=== PATIENT | male | born 1980 | race Caucasian/White ===

== ENCOUNTER 2017-09-20 13:08 | Inpatient (IN) | payer MEDICAID, OTHER ==
[~2017-09-20] VITALS: Ht 195.6 cm; Wt 114.0 kg
[2017-09-20] MEDS ORDERED: MORPHINE SULFATE 4 MG/ML, 1ML IVPush PRN ×2 (13:30→15:00)
[2017-09-20] MEDS ORDERED: SODIUM CHLORIDE 0.9% 1,000ML IVBOLUS ONE (13:30)
[2017-09-20] MEDS ORDERED: ONDANSETRON 2MG/ML, 2ML IVPush ONE (13:30)
[2017-09-20] MEDS ORDERED: ONDANSETRON 2MG/ML, 2ML ONE (14:21)
[2017-09-20] MEDS ORDERED: MORPHINE SULFATE 4 MG/ML, 1ML ONE ×2 (14:22→15:43)
[2017-09-20 14:30] LABS: ALANINE AMINOTRANSFERASE 67 U/L (12-78); ALBUMIN 2.4 g/dL (3.4-5.0); ANION GAP 7 mmol/L (5-15); CALCIUM 8.6 mg/dL (8.5-10.1); CHLORIDE 101 mmol/L (98-107); CREATININE 0.76 mg/dL (0.7-1.3)
[2017-09-20 14:32] LABS: ALKALINE PHOSPHATASE 161 U/L (45-117); BILIRUBIN,TOTAL 9.5 mg/dL (0.2-1.0); MEAN CORPUSCULAR HEMOGLOBIN 38.2 pg (27.5-34.5); MEAN CORPUSCULAR HGB CONC 33.8 g/dL (33.2-36.2); MEAN CORPUSCULAR VOLUME 112.8 fL (81-97); MEAN PLATELET VOLUME 9.3 fL (7.4-10.4); PLATELET COUNT 336 x10^3/uL (130-400); RED BLOOD COUNT 3.39 x10^6/uL (4.38-5.82); RED CELL DISTRIBUTION WIDTH 18.8 % (9.4-14.8); TOTAL PROTEIN 8.1 g/dL (6.4-8.2)
[2017-09-20 14:53] LABS: MD YES
[2017-09-20 15:11] LABS: BAND#(MANUAL) 0.27 x10^3/uL; BANDS%(MANUAL) 2 % (0-7); BASOS#(MANUAL) 0.13 x10^3/uL (0-0.1); BASOS% (MANUAL) 1 % (0-1); LYMPH#(MANUAL) 1.86 x10^3/uL (1-3.4); LYMPHS% (MANUAL) 14 % (22-44); MONOS% (MANUAL) 9 % (2-9); REACTIVE LYMPHS # (MANUAL) 0.13 x10^3/uL (0-0); REACTIVE LYMPHS % (MANUAL) 1 % (0-0); SEG#(MANUAL) 9.71 x10^3/uL (1.8-6.8); SEGS% (MANUAL) 73 % (42-75)
[2017-09-20 15:12] LABS: ANISOCYTOSIS 2+; POLYCHROMASIA 1+
[2017-09-20 15:14] LABS: <PLATELET ESTIMATE> ADEQUATE; LARGE PLATELETS 1+; TARGET CELLS 1+
[2017-09-20] MEDS ORDERED: CEFTRIAXONE PMX 1GM/50ML 50 ML IV ONE (15:30)
[2017-09-20] MEDS ORDERED: CEFTRIAXONE PMX 1GM/50ML 50 ML ONE (15:43)
[2017-09-20] MEDS ORDERED: METRONIDAZOLE PMX 500MG/100ML 0 ML ONE (15:43)
[2017-09-20] MEDS ORDERED: SODIUM CHLORIDE 0.9% 1,000 ML IV ONE (16:00)
[2017-09-20] MEDS ORDERED: METRONIDAZOLE PMX 500MG/100ML 100 ML IV ONE (16:00)
[2017-09-20] MEDS ORDERED: POTASSIUM CHLORIDE 20 MEQ, MAGNESIUM SULFATE 2 GM, THIAMINE 100 MG, MVI ADULT 10 ML, FO... IV SCH (16:39)
[2017-09-20 16:56] LABS: MICROSCOPIC INDICATED
[2017-09-20] MEDS ORDERED: hydrALAzine 20 MG/ML, 1ML IVPush PRN (17:00)
[2017-09-20] MEDS ORDERED: DOCUSATE 100 MG CAPSULE PO PRN (17:00)
[2017-09-20] MEDS: ENOXAPARIN 40 MG/0.4 ML SQ SCH (17:00)
[2017-09-20] MEDS ORDERED: GUAIFENESIN/DM 200-20MG, 10ML UDC PO PRN (17:00)
[2017-09-20] MEDS ORDERED: PANTOPRAZOLE 40 MG IV IVPush SCH (17:00)
[2017-09-20 17:03] LABS: CULTURE INDICATED? YES
[2017-09-20 17:30] LABS: FOLATE LEVEL 2.6 ng/mL (3.1-17.5); THYROID STIMULATING HORMONE 3.97 mIU/L (0.358-3.740)
[2017-09-20 17:38] VITALS: BP 136/89
[2017-09-20] MEDS: morphine SULFATE 10 MG/ML, 1ML IVPush PRN ×2 (18:10→21:05)
[2017-09-20] MEDS: LACTATED RINGERS 1,000 ML IV SCH (18:11)
[2017-09-20] MEDS: NICOTINE 21 MG/24 HR PATCH.TD24 TD SCH (18:11)
[2017-09-20 20:24] VITALS: BP 123/74
[2017-09-20] MEDS: PANTOPRAZOLE 40 MG IV IVPush SCH (21:00)
[2017-09-20] MEDS: POTASSIUM CHLORIDE 20 MEQ, MAGNESIUM SULFATE 2 GM, THIAMINE 100 MG, MVI ADULT 10 ML, FO... IV SCH ×2 (21:00→21:50)
[2017-09-21] MEDS: morphine SULFATE 10 MG/ML, 1ML IVPush PRN ×7 (00:03→23:22)
[2017-09-21 03:11] VITALS: BP 112/72
[2017-09-21] MEDS: ONDANSETRON 2MG/ML, 2ML IVPush PRN ×2 (04:22→14:08)
[2017-09-21 04:56] LABS: ALANINE AMINOTRANSFERASE 51 U/L (12-78); ALBUMIN 1.9 g/dL (3.4-5.0); ANION GAP 5 mmol/L (5-15); CALCIUM 7.8 mg/dL (8.5-10.1); CHLORIDE 106 mmol/L (98-107); CREATININE 0.58 mg/dL (0.7-1.3)
[2017-09-21 04:59] LABS: ALKALINE PHOSPHATASE 126 U/L (45-117); BILIRUBIN,TOTAL 7.3 mg/dL (0.2-1.0); CHOL/HDL RATIO 16.6; CHOLESTEROL, TOTAL 133 mg/dL (140-239); HDL CHOL % 6 % (26-37); HDL CHOLESTEROL (DIRECT) 8 mg/dL (40-60); TOTAL PROTEIN 6.5 g/dL (6.4-8.2)
[2017-09-21 05:10] LABS: LDL CHOLESTEROL,CALCULATED 75 mg/dL (54-169); LDL/HDL RATIO 9.4 (0.5-3.0); TRIGLYCERIDES 249 mg/dL (50-200); VLDL CHOLESTEROL 50 mg/dL (0-25)
[2017-09-21 05:15] LABS: MEAN CORPUSCULAR HEMOGLOBIN 38.5 pg (27.5-34.5); MEAN CORPUSCULAR HGB CONC 34.1 g/dL (33.2-36.2); MEAN CORPUSCULAR VOLUME 112.9 fL (81-97); PLATELET COUNT 301 x10^3/uL (130-400); RED BLOOD COUNT 2.75 x10^6/uL (4.38-5.82); RED CELL DISTRIBUTION WIDTH 19.1 % (9.4-14.8)
[2017-09-21 05:16] LABS: MD YES
[2017-09-21 05:18] LABS: BAND#(MANUAL) 0.42 x10^3/uL; BANDS%(MANUAL) 4 % (0-7); EOS% (MANUAL) 1 % (1-7); LYMPH#(MANUAL) 1.14 x10^3/uL (1-3.4); LYMPHS% (MANUAL) 11 % (22-44); MONOS#(MANUAL) 1.04 x10^3/uL (0.3-2.7); MONOS% (MANUAL) 10 % (2-9); POLYCHROMASIA 1+; SEGS% (MANUAL) 74 % (42-75)
[2017-09-21 05:19] LABS: <PLATELET ESTIMATE> ADEQUATE; LARGE PLATELETS 1+; TARGET CELLS 1+
[2017-09-21 05:20] LABS: ANISOCYTOSIS 2+
[2017-09-21 06:34] VITALS: BP 96/61
[2017-09-21] MEDS: LACTATED RINGERS 1,000 ML IV SCH ×2 (07:33→16:43)
[2017-09-21] MEDS: PANTOPRAZOLE 40 MG IV IVPush SCH ×2 (09:08→20:20)
[2017-09-21] MEDS ORDERED: SINCALIDE (KINEVAC) 5 MCG ONE ×3 (10:46→13:17)
[2017-09-21] MEDS ORDERED: POTASSIUM PHOSPHATE 22 MEQ in SODIUM CHLORIDE 0.9% 500 ML IV ONE (12:00)
[2017-09-21] MEDS: ENOXAPARIN 40 MG/0.4 ML SQ SCH (16:07)
[2017-09-21] MEDS: NICOTINE 21 MG/24 HR PATCH.TD24 TD SCH (16:07)
[2017-09-21 18:53] VITALS: BP 127/81
[2017-09-21] MEDS: POTASSIUM CHLORIDE 20 MEQ, MAGNESIUM SULFATE 2 GM, THIAMINE 100 MG, MVI ADULT 10 ML, FO... IV SCH (22:21)
[2017-09-22 04:01] VITALS: BP 135/76
[2017-09-22] MEDS: morphine SULFATE 10 MG/ML, 1ML IVPush PRN ×3 (04:11→10:45)
[2017-09-22 04:28] LABS: MEAN CORPUSCULAR HEMOGLOBIN 38.2 pg (27.5-34.5); MEAN CORPUSCULAR HGB CONC 33.5 g/dL (33.2-36.2); MEAN CORPUSCULAR VOLUME 114.1 fL (81-97); MEAN PLATELET VOLUME 9.1 fL (7.4-10.4); PLATELET COUNT 322 x10^3/uL (130-400); RED BLOOD COUNT 2.88 x10^6/uL (4.38-5.82); RED CELL DISTRIBUTION WIDTH 19.4 % (9.4-14.8)
[2017-09-22 04:33] LABS: ALANINE AMINOTRANSFERASE 54 U/L (12-78); ANION GAP 5 mmol/L (5-15); CHLORIDE 108 mmol/L (98-107)
[2017-09-22 04:35] LABS: ALKALINE PHOSPHATASE 130 U/L (45-117); BILIRUBIN,TOTAL 8.6 mg/dL (0.2-1.0); TOTAL PROTEIN 6.8 g/dL (6.4-8.2)
[2017-09-22 05:58] LABS: MD YES
[2017-09-22 06:00] LABS: BAND#(MANUAL) 0.32 x10^3/uL; BANDS%(MANUAL) 3 % (0-7); BASOS#(MANUAL) 0.11 x10^3/uL (0-0.1); BASOS% (MANUAL) 1 % (0-1); EOS#(MANUAL) 0.21 x10^3/uL (0.0-0.4); EOS% (MANUAL) 2 % (1-7); LYMPH#(MANUAL) 2.21 x10^3/uL (1-3.4); LYMPHS% (MANUAL) 21 % (22-44); MONOS#(MANUAL) 0.74 x10^3/uL (0.3-2.7); MONOS% (MANUAL) 7 % (2-9); SEG#(MANUAL) 6.93 x10^3/uL (1.8-6.8); SEGS% (MANUAL) 66 % (42-75)
[2017-09-22 06:01] LABS: <PLATELET ESTIMATE> ADEQUATE; ANISOCYTOSIS 2+; LARGE PLATELETS 1+; POLYCHROMASIA 1+; TARGET CELLS 1+
[2017-09-22] MEDS: PANTOPRAZOLE 40 MG IV IVPush SCH ×2 (07:47→19:35)
[2017-09-22 08:10] VITALS: BP 117/69
[2017-09-22] MEDS: LACTATED RINGERS 1,000 ML IV SCH ×2 (09:30→19:30)
[2017-09-22] MEDS ORDERED: SODIUM PHOSPHATE 20 MMOL in SODIUM CHLORIDE 0.9% 500 ML IV ONE (12:30)
[2017-09-22] MEDS: OXYcodone IR 5MG TABLET PO PRN ×3 (13:33→21:36)
[2017-09-22 13:54] VITALS: BP 126/82
[2017-09-22] MEDS: ENOXAPARIN 40 MG/0.4 ML SQ SCH (17:00)
[2017-09-22] MEDS: NICOTINE 21 MG/24 HR PATCH.TD24 TD SCH (17:14)
[2017-09-22 18:12] LABS: AMPHETAMINE SCREEN, URINE Negative (Negative); BARBITURATE SCREEN, URINE Negative (Negative); BENZODIAZEPINE SCREEN, URINE Negative (Negative); CANNABINOID SCREEN, URINE Negative (Negative); COCAINE SCREEN, URINE Positive (Negative); METHADONE SCREEN, URINE Negative (Negative); OPIATE SCREEN, URINE Positive (Negative)
[2017-09-22 18:24] VITALS: BP 120/75
[2017-09-22] MEDS: POTASSIUM CHLORIDE 20 MEQ, MAGNESIUM SULFATE 2 GM, THIAMINE 100 MG, MVI ADULT 10 ML, FO... IV SCH (19:35)
[2017-09-23 01:42] VITALS: BP 117/78
[2017-09-23] MEDS: OXYcodone IR 5MG TABLET PO PRN ×6 (01:47→23:33)
[2017-09-23 05:44] LABS: MEAN CORPUSCULAR HEMOGLOBIN 38.1 pg (27.5-34.5); MEAN CORPUSCULAR HGB CONC 33.6 g/dL (33.2-36.2); MEAN CORPUSCULAR VOLUME 113.2 fL (81-97); MEAN PLATELET VOLUME 9.1 fL (7.4-10.4); PLATELET COUNT 330 x10^3/uL (130-400); RED BLOOD COUNT 2.88 x10^6/uL (4.38-5.82); RED CELL DISTRIBUTION WIDTH 19.3 % (9.4-14.8)
[2017-09-23 05:57] LABS: CHLORIDE 108 mmol/L (98-107)
[2017-09-23 06:05] LABS: ALANINE AMINOTRANSFERASE 57 U/L (12-78); ALKALINE PHOSPHATASE 134 U/L (45-117); ANION GAP 7 mmol/L (5-15); BILIRUBIN,TOTAL 7.4 mg/dL (0.2-1.0); CALCIUM 7.7 mg/dL (8.5-10.1); CREATININE 0.67 mg/dL (0.7-1.3); TOTAL PROTEIN 6.7 g/dL (6.4-8.2)
[2017-09-23 06:21] LABS: MD YES
[2017-09-23 06:35] LABS: EOS% (MANUAL) 2 % (1-7); LYMPH#(MANUAL) 2.22 x10^3/uL (1-3.4); LYMPHS% (MANUAL) 22 % (22-44); MONOS#(MANUAL) 0.81 x10^3/uL (0.3-2.7); MONOS% (MANUAL) 8 % (2-9); SEG#(MANUAL) 6.87 x10^3/uL (1.8-6.8); SEGS% (MANUAL) 68 % (42-75)
[2017-09-23 06:36] LABS: ANISOCYTOSIS 2+
[2017-09-23 06:37] LABS: TARGET CELLS 1+
[2017-09-23 06:38] LABS: <PLATELET ESTIMATE> ADEQUATE; LARGE PLATELETS 1+
[2017-09-23] MEDS: LACTATED RINGERS 1,000 ML IV SCH (06:47)
[2017-09-23 07:50] VITALS: BP 114/72
[2017-09-23] MEDS: PANTOPRAZOLE 40 MG IV IVPush SCH ×2 (09:02→23:33)
[2017-09-23] MEDS ORDERED: maalox/diphenh/lido/sucralfate 5 ML PO PRN (12:00)
[2017-09-23 12:17] LABS: OCCULT BLOOD NEGATIVE (NEGATIVE)
[2017-09-23] MEDS: THIAMINE 100MG TABLET PO SCH ×2 (12:58→23:33)
[2017-09-23] MEDS: MULTIVITAMIN 1 TABLET PO SCH (12:58)
[2017-09-23] MEDS: FOLIC ACID 1 MG TABLET PO SCH (12:58)
[2017-09-23 14:56] VITALS: BP 123/80
[2017-09-23] MEDS: ENOXAPARIN 40 MG/0.4 ML SQ SCH (16:18)
[2017-09-23] MEDS: NICOTINE 21 MG/24 HR PATCH.TD24 TD SCH (17:32)
[2017-09-23 18:36] VITALS: BP 122/73
[2017-09-24 01:19] VITALS: BP 124/86
[2017-09-24] MEDS: OXYcodone IR 5MG TABLET PO PRN ×3 (03:29→13:05)
[2017-09-24 04:40] LABS: MEAN CORPUSCULAR HEMOGLOBIN 37.6 pg (27.5-34.5); MEAN CORPUSCULAR VOLUME 113.9 fL (81-97); MEAN PLATELET VOLUME 9.2 fL (7.4-10.4); PLATELET COUNT 351 x10^3/uL (130-400); RED BLOOD COUNT 3.24 x10^6/uL (4.38-5.82); RED CELL DISTRIBUTION WIDTH 18.9 % (9.4-14.8)
[2017-09-24 04:45] LABS: ALBUMIN 2.3 g/dL (3.4-5.0); ANION GAP 8 mmol/L (5-15); CALCIUM 8.2 mg/dL (8.5-10.1); CHLORIDE 103 mmol/L (98-107)
[2017-09-24 04:50] LABS: ALANINE AMINOTRANSFERASE 66 U/L (12-78); ALKALINE PHOSPHATASE 160 U/L (45-117); BILIRUBIN,TOTAL 8.3 mg/dL (0.2-1.0)
[2017-09-24 05:45] LABS: MD YES
[2017-09-24 05:49] LABS: BAND#(MANUAL) 0.11 x10^3/uL; BANDS%(MANUAL) 1 % (0-7); EOS#(MANUAL) 0.11 x10^3/uL (0.0-0.4); EOS% (MANUAL) 1 % (1-7); LYMPH#(MANUAL) 1.78 x10^3/uL (1-3.4); LYMPHS% (MANUAL) 16 % (22-44); MONOS#(MANUAL) 1.44 x10^3/uL (0.3-2.7); MONOS% (MANUAL) 13 % (2-9); SEG#(MANUAL) 7.66 x10^3/uL (1.8-6.8); SEGS% (MANUAL) 69 % (42-75)
[2017-09-24 05:50] LABS: ANISOCYTOSIS 2+; POLYCHROMASIA 1+; TARGET CELLS 1+
[2017-09-24 05:51] LABS: <PLATELET ESTIMATE> ADEQUATE; LARGE PLATELETS 1+
[2017-09-24 07:00] VITALS: BP 111/69
[2017-09-24] MEDS: MULTIVITAMIN 1 TABLET PO SCH (08:51)
[2017-09-24] MEDS: PANTOPRAZOLE 40 MG IV IVPush SCH (08:51)
[2017-09-24] MEDS: THIAMINE 100MG TABLET PO SCH (08:51)
[2017-09-24] MEDS: FOLIC ACID 1 MG TABLET PO SCH (08:51)
[2017-09-24 13:20] VITALS: BP 113/67
[2017-09-24] MEDS ORDERED: maalox/diphenh/lido/sucralfate PO (13:46)
[2017-09-24] MEDS ORDERED: OMEP-110 PO (13:46)
[2017-09-24] MEDS ORDERED: FOLI-17 PO (13:46)
[2017-09-24] MEDS ORDERED: MULT1TAB60 PO (13:46)
[2017-09-24] MEDS ORDERED: THIA100T6 PO (13:51)
== END 2017-09-24 16:03 | disposition home or self-care (01) | DRG 432 ==
LOC: ED 15:32 → EDIP 16:27 → 3NW 17:16 → DCLOUNGE 09-24 15:55
PROVIDERS: ADMIT Internal Medicine; ATTEND Internal Medicine
DX: K70.40 Alcoholic hepatic failure without coma (principal); K85.20 Alcohol induced acute pancreatitis without necrosis or infection; K70.0 Alcoholic fatty liver; K70.11 Alcoholic hepatitis with ascites; E87.1 Hypo-osmolality and hyponatremia; B19.10 Unspecified viral hepatitis B without hepatic coma; F15.20 Other stimulant dependence, uncomplicated; L02.414 Cutaneous abscess of left upper limb; L03.114 Cellulitis of left upper limb; K70.31 Alcoholic cirrhosis of liver with ascites; D50.9 Iron deficiency anemia, unspecified; F10.10 Alcohol abuse, uncomplicated; D75.89 Other specified diseases of blood and blood-forming organs; K82.8 Other specified diseases of gallbladder; E53.8 Deficiency of other specified B group vitamins; I10 Essential (primary) hypertension; Z87.891 Personal history of nicotine dependence; Z82.49 Family history of ischemic heart disease and other diseases of the circulatory system; Z83.3 Family history of diabetes mellitus
CPT/HCPCS: 36415; 74181; 76700; 78227; 80053; 80061; 80307; 81001; 82140; 82248; 82272; 82533; 82607; 82746; 83690; 83735; 83935; 84100; 84443; 85025; 86704; 86706; 86708; 86803; 87086; 87340; 96361; 96365; 96375; J0696; J2405; J3411; J3475; J3480; J7042; A9537; C9113; C9898; J2270; J2805; J7030; J7040; J7120

== ENCOUNTER 2020-08-17 17:10 | Emergency (ER) | payer MEDICAID, OTHER ==
[~2020-08-17] VITALS: Ht 195.6 cm; Wt 120.0 kg
[~2020-08-17 17:10] MED LIST: FOLI1TAB32 PO; MULT-449 PO; OMEP-110 PO; THIA100T67 PO; maalox/diphenh/lido/sucralfate PO
--- NOTE | 2020-08-17 18:14 | NUR ---
STUDENT SERVICES REPRESENTATIVE: PT TO ROOM FROM BERNA CHAPMAN
--- NOTE | 2020-08-17 18:18 | NUR ---
PATIENT ARRIVES WITH THREE TO FOUR DAYS SOB, BODY ACHES, CHILLS.
--- NOTE | 2020-08-17 19:05 | NUR ---
BEDSIDE REPORT RECEIVED FROM ERICK NOLAND
--- NOTE | 2020-08-17 19:07 | NUR ---
PT SITTING UPRIGHT ON ESTEVAN QUINTERO, VSS. PT DENIES ANY NEEDS AT THIS TIME. CALL LIGHT AND PERSONAL BELONGINGS WITHIN REACH.
[2020-08-17 20:01] VITALS: BP 167/104
--- NOTE | 2020-08-17 20:02 | NUR ---
Patient given discharge instructions and they have confirmed that they understand the instructions. Patient ambulatory with steady gait.
== END 2020-08-17 20:03 | disposition home or self-care (01) ==
LOC: ED 18:25
DX: J06.9 Acute upper respiratory infection, unspecified (principal); Z20.822 Contact with and (suspected) exposure to COVID-19; R05 Cough; R50.9 Fever, unspecified; R06.02 Shortness of breath; M79.10 Myalgia, unspecified site
CPT/HCPCS: 71045; 87635; 93005; 99285